=== PATIENT | male | born 1945 | race Caucasian/White ===

== ENCOUNTER 2020-05-20 08:41 | Outpatient (CLI) | payer MEDICARE, SELFPAY ==
--- NOTE | ~2020-05-20 | CT_ITS ---
EXAMINATION: CT lung screening EXAM DATE: 05/20/2020 09:07 INDICATION: Personal history of nicotine dependence. TECHNIQUE: Spiral low dose CT of the chest without contrast. Axial, coronal and sagittal images were reviewed. The dose-length product (DLP) for this examination was 133.51 mGy-cm. The exposure was t ailored according to patient size (auto mA exposure control), and iterative reconstruction (ASIR) was used as additional dose reduction technique. There is no prior study for comparison. FINDINGS: There is 5 mm right middle lobe nodule on axial image 73. Tracheobronchial tree is patent . There is no mediastinal, hilar or axillary lymphadenopathy. There are no pleural or pericardial effusions. There is no pneumothorax. Heart normal in size. There is moderate coronary arterial calcification, arterial sclerosis. Upper abdomen is unremarkable. There is thoracic spondylosis wi thout osteoblastic or osteolytic lesions identified. Patient has diffuse idiopathic skeletal hypero stosis (DISH). IMPRESSION: Lung-RADS category 2, benign appearance or behavior (<1% chance of malignancy); recommend continued LDCT screening in 1 year. Reviewed, dictated and finalized at location B. MANAGER
== END 2020-05-20 08:42 | disposition home or self-care (01) ==
PROVIDERS: PCP Internal Medicine; Visit Provider Nurse Practitioner
DX: Z12.2 Encounter for screening for malignant neoplasm of respiratory organs (principal); Z87.891 Personal history of nicotine dependence
CPT/HCPCS: 71271

== ENCOUNTER → 2020-07-05 02:31 | Outpatient (CLI) | payer MEDICARE, SELFPAY ==
[2020-07-05 18:21] LABS: SARS-CoV-2 RNA PCR Negative
== END ==
PROVIDERS: PCP Internal Medicine; Visit Provider Internal Medicine Gastroenterology
DX: Z01.812 Encounter for preprocedural laboratory examination (principal); Z20.822 Contact with and (suspected) exposure to COVID-19
CPT/HCPCS: C9803; U0003; U0005

== ENCOUNTER 2020-07-08 00:08 | Day surgery (SDC) | payer MEDICARE, SELFPAY ==
[2020-06-23 12:18] VITALS: BMI 29.5
[2020-07-08 11:27] VITALS: BP 152/84; PULSE 72; RESP 16; TEMP 36.1; O2SAT 98; BMI 30.1
[2020-07-08] MEDS: LACTATED RINGERS 1,000 ML 150 ML IV CONT (11:38)
--- NOTE | 2020-07-08 12:02 | WPDANESEPPF ---
Anes - Initial Pre Proc Eval Procedure: Operation Date: 07/08/20 12:30 Proposed Procedures p Screening Colonoscopy - Guy Vaca MD Date/Time: 07/08/20 12:02 Surgeon: Guy Vaca MD Pre Op Diagnosis: Neoplasm Screening Patient Data Age: 75 Gender: M Height: 5 ft 4 in Weight: 79.6 kg Last Vital Signs Temp 96.9 F L 07/08/20 11:27 Pulse 72 07/08/20 11:27 Resp 16 07/08/20 11:27 BP 152/84 H 07/08/20 11:27 Pulse Ox 98 07/08/20 11:27 Allergies Allergy/AdvReac Type Severity Reaction Status Date / Time No Known Allergies Allergy Verified 07/08/20 11:24 Home Medications Medication Instructions Recorded Confirmed Type coenzyme Q10 100 mg capsule 100 mg PO DAILY 10/08/19 06/23/20 History tamsulosin 0.4 mg capsule 0.4 mg PO DAILY 10/08/19 06/23/20 History amlodipine 5 mg tablet 5 mg PO DAILY #90 tablet 05/17/20 06/23/20 Rx atorvastatin 10 mg tablet 10 mg PO DAILY #90 tablet 05/17/20 06/23/20 Rx losartan 100 mg tablet 100 mg PO DAILY #90 tablet 05/17/20 06/23/20 Rx omeprazole 20 mg capsule,delayed 20 mg PO DAILY #90 cap 05/17/20 06/23/20 Rx release peg 3350-electrolytes 236 240 ml PO Q10M #4000 ml 05/26/20 07/08/20 Rx gram-22.74 gram-6.74 gram-5.86 gram solution aspirin [Aspirin Low Dose] 81 mg PO DAILY 06/23/20 06/23/20 History magnesium oxide 400 mg PO DAILY 06/23/20 06/23/20 History Patient hx anesthesia problems: none Family hx anesthesia problems: none PMFSH Past Medical History Medical History (Updated 05/17/20 @ 13:16 by JAKE Oliveira) Depression Encounter for blood transfusion GERD (gastroesophageal reflux disease) Hyperlipemia Hypertension Migraine Non-recurrent unilateral inguinal hernia without obstruction or gangrene Surgical History Surgical History History of hernia repair 1975 History of right inguinal hernia lap right inguinal hernia and right femoral hernia repair with Progrip mesh 12/12/16 Family History Family History Father Cancer Other Family history of malignant neoplasm Hypertension Social History Social History (Updated 05/17/20 @ 12:54 by JAKE Oliveira) Years smoked: 50 Smoking status: Light tobacco smoker Tobacco type: cigarettes Alcohol intake: never Substance use: never Substance use type: does not use Other substance usage details: marijuana Living arrangements: with family Gender identity (if verbalized by the patient): Male Spiritual care concerns: No Anes - Eval Final PreProcedure Day of Procedure 07/08/20 12:02 Patient weight: overweight Heart: regular rate and rhythm Lungs: clear to auscultation Airway: Mallampati scale class III Neurological: alert and oriented Last oral intake: >/= 8 hours ASA classification: III Emergent: no Anesthetic plan: proceed Anesthesia type and monitoring: general GIVS and standard monitoring Informed Consent: The patient's anesthetic plan and its attendant risks and benefits were discussed with the patient/family/POA. Questions were solicited and answers provided to the satisfaction of the patient/family/POA.
--- NOTE | 2020-07-08 12:27 | PM.HPGS ---
History of Present Illness History of Present Illness Consent: Risks, benefits, and alternatives have been discussed and questions answered. Patient agrees to proceed with procedure. Chief complaint: Neoplasm Screening Narrative: Nico Machado is a 75 year old male with large polyp ~ 3 years ago. Review of Systems Constitutional: Constitutional: Denies headache(s) and Denies weakness Eyes: Eyes: Denies blurry vision ENT: Reports Normal hearing present, Denies headache(s) and Denies neck pain Cardiovascular: Cardiovascular: Denies chest pain and Denies dyspnea Respiratory: Respiratory: Denies dyspnea Gastrointestinal: Gastrointestinal: Reports no additional gastrointestinal complaints Genitourinary: Genitourinary: Denies dysuria Musculoskeletal: Musculoskeletal: Denies neck pain Integumentary/Breasts: Skin/Breast: Denies dry skin Neurologic: Reports Normal hearing present, Denies headache(s) and Denies weakness Psychiatric: Psychiatric: Denies anxiety Endocrine: Endocrine: Denies change in body appearance Hematologic/Lymphatic: Hematologic/Lymphatic: Denies easy bleeding Allergic/Immunologic: Allergic/Immunologic: Denies urticaria PMFSH Past Medical History Medical History (Updated 07/08/20 @ 12:28 by Guy Vaca MD) Adenomatous colon polyp Depression Encounter for blood transfusion GERD (gastroesophageal reflux disease) Hyperlipemia Hypertension Migraine Non-recurrent unilateral inguinal hernia without obstruction or gangrene Surgical History Surgical History History of hernia repair 1974 History of right inguinal hernia lap right inguinal hernia and right femoral hernia repair with Progrip mesh 12/12/16 Family History Family History Father Cancer Other Family history of malignant neoplasm Hypertension Social History Social History (Updated 05/17/20 @ 12:54 by JAKE Oliveira) Years smoked: 50 Smoking status: Light tobacco smoker Tobacco type: cigarettes Alcohol intake: never Substance use: never Substance use type: does not use Other substance usage details: marijuana Living arrangements: with family Gender identity (if verbalized by the patient): Male Spiritual care concerns: No Meds Home Medications and Allergies Home Medications Medication Instructions Recorded Confirmed Type coenzyme Q10 100 mg capsule 100 mg PO DAILY 10/08/19 06/23/20 History tamsulosin 0.4 mg capsule 0.4 mg PO DAILY 10/08/19 06/23/20 History amlodipine 5 mg tablet 5 mg PO DAILY #90 tablet 05/17/20 06/23/20 Rx atorvastatin 10 mg tablet 10 mg PO DAILY #90 tablet 05/17/20 06/23/20 Rx losartan 100 mg tablet 100 mg PO DAILY #90 tablet 05/17/20 06/23/20 Rx omeprazole 20 mg capsule,delayed 20 mg PO DAILY #90 cap 05/17/20 06/23/20 Rx release peg 3350-electrolytes 236 240 ml PO Q10M #4000 ml 05/26/20 07/08/20 Rx gram-22.74 gram-6.74 gram-5.86 gram solution aspirin [Aspirin Low Dose] 81 mg PO DAILY 06/23/20 06/23/20 History magnesium oxide 400 mg PO DAILY 06/23/20 06/23/20 History Allergies Allergy/AdvReac Type Severity Reaction Status Date / Time No Known Allergies Allergy Verified 07/08/20 11:24 Vital Signs Vital Signs - 24 hr 07/08/20 11:27 Temperature 96.9 F L Pulse Rate 72 Respiratory Rate 16 Blood Pressure 152/84 H Pulse Oximetry 98 Exam Const: General: comfortable and no acute distress HENMT: General nose exam: Normal nares present Eyes: General: appearance normal, both eyes and all related structures Neck: Neck: no JVD Resp: Auscultation: clear to auscultation bilaterally Cardio: Rate: regular rate Rhythm: regular rhythm GI: Inspection: non-distended GI Palp: Yes Soft to palpation Skin: General skin exam: normal color Neuro: General: gait normal Speech: normal speech Extrem: General: n
[2020-07-08 12:46] VITALS: BP 116/73; PULSE 62; RESP 19; O2SAT 96
[2020-07-08 12:56] VITALS: BP 127/76; PULSE 66; RESP 27; O2SAT 98
[2020-07-08 13:06] VITALS: BP 138/85; PULSE 61; RESP 21; O2SAT 99
== END 2020-07-08 13:08 | disposition home or self-care (01) ==
PROVIDERS: PCP Internal Medicine; Visit Provider Internal Medicine Gastroenterology
PROC: 0DJD8ZZ Inspection of Lower Intestinal Tract, Via Natural or Artificial Opening Endoscopic (ICD-10-PCS; CPT 45378; principal; 2020-07-08 12:30)
DX: Z12.11 Encounter for screening for malignant neoplasm of colon (principal); K57.30 Diverticulosis of large intestine without perforation or abscess without bleeding; K64.8 Other hemorrhoids; Z86.010 Personal history of colon polyps; I10 Essential (primary) hypertension; E78.5 Hyperlipidemia, unspecified; K21.9 Gastro-esophageal reflux disease without esophagitis; F32.9 Major depressive disorder, single episode, unspecified; F17.210 Nicotine dependence, cigarettes, uncomplicated; F12.90 Cannabis use, unspecified, uncomplicated
CPT/HCPCS: G0105; C9803; J2704; J7120; U0003; U0005